=== PATIENT | male | born 1935 | race Two or more races ===

== ENCOUNTER 2016-08-28 07:31 | Outpatient (CLI) | payer MEDICARE, MEDICAID ==
[2016-08-28 08:32] LABS: CHOLESTEROL 134 mg/dL (<200); TRIGLYCERIDES 164 mg/dL (<150)
== END 2016-08-28 07:50 | disposition home or self-care (01) ==
LOC: LAB 07:31
DX: E11.65 Type 2 diabetes mellitus with hyperglycemia (principal); E11.22 Type 2 diabetes mellitus with diabetic chronic kidney disease; N18.9 Chronic kidney disease, unspecified
CPT/HCPCS: 36415-UA; 80061-TC; 82306-90; 83036-90; 84443-TC

== ENCOUNTER 2017-09-16 07:36 | Outpatient (CLI) | payer MEDICARE, MEDICAID ==
[2017-09-16 08:31] LABS: CHOLESTEROL 116 mg/dL (<200); HDL -HIGH DENSITY LIPOPROTEIN 38 mg/dL (23-92); TRIGLYCERIDES 120 mg/dL (<150)
[2017-09-16 21:30] LABS: A1C % 4.9 % (4.0-6.0)
== END 2017-09-16 07:55 | disposition home or self-care (01) ==
LOC: LAB 07:36
DX: E11.22 Type 2 diabetes mellitus with diabetic chronic kidney disease (principal); I12.0 Hypertensive chronic kidney disease with stage 5 chronic kidney disease or end stage renal disease; E03.9 Hypothyroidism, unspecified; N18.5 Chronic kidney disease, stage 5; E78.5 Hyperlipidemia, unspecified
CPT/HCPCS: 36415-UA; 80061-TC; 83036-90; 84443-TC

== ENCOUNTER 2018-11-03 08:05 | Outpatient (CLI) | payer MEDICARE, MEDICAID ==
[2018-11-03 09:27] LABS: ALB/GLOB RATIO 0.8 (1.0-1.8); ALBUMIN 3.4 gm/dL (4.2-5.5); ALKALINE PHOSPHATASE 107 U/L (34-104); ANION GAP 14.5 (7.0-16.0); BILIRUBIN,TOTAL 0.4 mg/dL (0.3-1.0); BUN - UREA NITROGEN 30 mg/dL (7-25); CALCIUM SERUM 9.2 mg/dL (8.6-10.3); CARBON DIOXIDE 32.3 mEq/L (21.0-31.0); CHLORIDE 97 mEq/L (98-107); CHOLESTEROL 113 mg/dL (<200); GLUCOSE 102 mg/dL (70-105); HDL -HIGH DENSITY LIPOPROTEIN 33 mg/dL (23-92); POTASSIUM SERUM 3.8 mEq/L (3.5-5.1); SGOT 9 U/L (13-39); SGPT/ALT 9 U/L (7-52); SODIUM SERUM 140 mEq/L (136-145); TOTAL PROTEIN,SERUM 7.6 gm/dL (6.0-8.3); TRIGLYCERIDES 105 mg/dL (<150)
[2018-11-03 09:28] LABS: ALB/GLOB RATIO 0.9 (1.0-1.8); ALBUMIN 3.3 gm/dL (4.2-5.5); BILIRUBIN,TOTAL 0.4 mg/dL (0.3-1.0); TOTAL PROTEIN,SERUM 7.2 gm/dL (6.0-8.3)
[2018-11-03 09:50] LABS: % BASOPHILS 0.1 % (0.0-2.0); % EOSINOPHILS 2.9 % (0.0-5.0); % MONOCYTES 10.3 % (2.0-10.0); % NEUTROPHILS 66.7 % (40.0-80.0); EOSINOPHILE ABSOLUTE 0.2 Th/cmm (0.1-0.4); HEMATOCRIT 41.2 % (41.0-60); HEMOGLOBIN 13.5 gm/dL (12-16); LYMPHOCYTE ABSOLUTE 1.3 Th/cmm (1.5-3.0); MEAN CELL VOLUME 90.8 fl (80-99); MEAN CORPUSCULAR HEMOGLOBIN 29.8 pg (27.0-31.0); MEAN CORPUSCULAR HGB CONC 32.8 pg (28.0-36.0); MONOCYTE ABSOLUTE 0.7 Th/cmm (0.3-1.0); NEUTROPHILE ABSOLUTE 4.5 Th/cmm (1.8-8.0); PLATELET COUNT 264 Th/cmm (150-400); RED BLOOD COUNT 4.53 Mil/cmm (3.80-5.80); RED CELL DISTRIBUTION WIDTH 16.6 % (11.5-20.0); WHITE BLOOD COUNT 6.7 Th/cmm (4.8-10.8)
[2018-11-03 09:54] LABS: BILIRUBIN,DIRECT 0.09 mg/dL (0.0-0.2); CREATININE - SERUM 5.2 mg/dL (0.7-1.3)
[2018-11-04 08:06] LABS: A1C 5.8 % (4.8-5.6)
== END 2018-11-03 10:04 | disposition home or self-care (01) ==
LOC: LAB 08:05
PROVIDERS: ATTEND Internal Medicine
DX: E11.22 Type 2 diabetes mellitus with diabetic chronic kidney disease (principal); I12.0 Hypertensive chronic kidney disease with stage 5 chronic kidney disease or end stage renal disease; N18.5 Chronic kidney disease, stage 5; E03.9 Hypothyroidism, unspecified; E78.5 Hyperlipidemia, unspecified; J44.9 Chronic obstructive pulmonary disease, unspecified
CPT/HCPCS: 36415-UA; 80053-TC; 80061-TC; 80076-TC; 83036-90; 83880-TC; 84134-90; 84443-TC; 85025-TC